=== PATIENT | female | born 1985 | race American Indian/Alaskan Native ===

== ENCOUNTER 2021-07-22 11:31 | Emergency (ER) | payer MEDICAID ==
[2021-07-22 12:59] LABS: Bilirubin,Urine NEG (Negative); Blood,Urine NEG (Negative); Color,Urine Yellow (Yellow); Mucus,Urine 1+ /HPF; Protein,Urine <15 mg/dL mg/dL (Negative)
[2021-07-22 13:34] LABS: Alanine Aminotransferase 29 units/L (7-56); Albumin 3.7 g/dL (3.9-5); Blood Urea Nitrogen 8 mg/dL (7-17); Calcium 8.9 mg/dL (8.4-10.2); Hemolysis Index 0
[2021-07-22 13:44] LABS: BUN/Creatinine Ratio 20
[2021-07-22 13:59] LABS: INR 0.87 (0.87-1.13)
--- NOTE | 2021-07-22 15:17 | Emergency Department Report ---
ED HPI - General Chief complaint: Vaginal Bleeding Stated complaint: 10 WKS Time Seen by Provider: 07/22/21 15:11 Source: patient Mode of arrival: Ambulatory Limitations: No Limitations - History of Present Illness Initial comments: Patient 35-year-old female A0 presents for vaginal spotting x2 days. Patient denies fevers or chills no nausea no vomiting. No active bleeding at this time. Patient does have [employer] Dr. Heath. There are no exacerbating or relieving factors. MD Complaint: abdominal pain - Related Data Previous Rx's Medication Instructions Recorded Last Taken Type amLODIPine [Norvasc] 10 mg PO DAILY #30 tab 10/28/19 Unknown Rx hydroCHLOROthiazide [Hctz] 12.5 mg PO QDAY #30 capsule 10/28/19 Unknown Rx Allergies Allergy/AdvReac Type Severity Reaction Status Date / Time No Known Allergies Allergy Unverified 01/13/19 09:00 ED Review of Systems ROS: Stated complaint: 10 WKS Other details as noted in HPI Constitutional: denies: chills, fever Eyes: denies: eye pain, eye discharge, vision change ENT: denies: ear pain, throat pain Respiratory: denies: cough, shortness of breath, wheezing Cardiovascular: denies: chest pain, palpitations Endocrine: no symptoms reported Gastrointestinal: abdominal pain. denies: nausea, vomiting, diarrhea, constipation, melena Genitourinary: denies: urgency, dysuria, frequency, hematuria, discharge Musculoskeletal: back pain Skin: denies: rash, lesions Neurological: denies: headache, weakness, paresthesias, vertigo Psychiatric: denies: anxiety, depression Hematological/Lymphatic: denies: easy bleeding, easy bruising ED Past Medical Hx - Past Medical History Previous Medical History?: Yes Hx Hypertension: Yes - Surgical History Past Surgical History?: Yes Hx Cholecystectomy: Yes Additional Surgical History: Hernia repair - Social History Smoking Status: Never Smoker Substance Use Type: None - Medications Home Medications: Home Medications Medication Instructions Recorded Confirmed Last Taken Type amLODIPine [Norvasc] 10 mg PO DAILY #30 tab 10/28/19 Unknown Rx hydroCHLOROthiazide [Hctz] 12.5 mg PO QDAY #30 capsule 10/28/19 Unknown Rx ED Physical Exam - General Limitations: No Limitations General appearance: alert, in no apparent distress - Head Head exam: Present: atraumatic, normocephalic - Eye Eye exam: Present: normal appearance, EOMI Pupils: Present: normal accommodation - ENT ENT exam: Present: mucous membranes moist - Neck Neck exam: Present: normal inspection, full ROM. Absent: tenderness - Respiratory Respiratory exam: Present: normal lung sounds bilaterally. Absent: respiratory distress, wheezes - Cardiovascular Cardiovascular Exam: Present: regular rate, normal rhythm, normal heart sounds. Absent: systolic murmur, diastolic murmur, rubs, gallop - GI/Abdominal GI/Abdominal exam: Absent: distended - Rectal Rectal exam: Present: deferred - External exam: Present: other - Extremities Exam Extremities exam: Present: normal inspection, full ROM, normal capillary refill. Absent: tenderness, pedal edema - Back Exam Back exam: Present: normal inspection, full ROM. Absent: CVA tenderness (R), CV A tenderness (L) - Neurological Exam Neurological exam: Present: alert, oriented X3, CN II-XII intact, normal gait - Psychiatric Psychiatric exam: Present: normal affect, normal mood - Skin Skin exam: Present: warm, dry, intact, normal color. Absent: rash ED Course Vital Signs 07/22/21 12:11 Temperature 98.4 F Pulse Rate 81 Respiratory 20 Rate Blood Pressure 140/85 [Right] O2 Sat by Pulse 99 Oximetry ED Medical Decision Making - Lab Data Result diagrams: 07/22/21 16:00 07/22/21 12:50 Labs 07/22/21 07/22/21 07/22/21 12:50 12:50 12:50 PT 12.7 INR 0.87 Sodium 134 L Potassium 3.6 Chloride 102.0 Carbon Dioxide 20 L Anion Gap 16 BUN 8 Creatinine 0.4 L Estimated GFR > 60 BUN/Creatinine Ratio 20 Glucose 81 Calcium 8.9 Total Bilirubin 0.20 AST 19 ALT 29 Alkaline Phosphatase 86 Total Protein 6.7 Albumin 3.7 L Albumin/Globulin Ratio 1.2 HCG, Quant 79957 H Urine Color Urine Turbidity Urine pH Ur Specific [place] Urine Protein Urine Glucose (UA) Urine Ketones Urine Blood Urine Nitrite Urine Bilirubin Urine Urobilinogen Ur Leukocyte Esterase Urine WBC (Auto) Urine RBC (Auto) U Epithel Cells (Auto) Urine Mucus Blood Type Antibody Screen 07/22/21 07/22/21 12:55 Unknown PT INR Sodium Potassium Chloride Carbon Dioxide Anion Gap BUN Creatinine Estimated GFR BUN/Creatinine Ratio Glucose Calcium Total Bilirubin AST ALT Alkaline Phosphatase Total Protein Albumin Albumin/Globulin Ratio HCG, Quant Urine Color Yellow Urine Turbidity Clear Urine pH 7.0 Ur Specific [place] 1.017 Urine Protein <15 mg/dl Urine Glucose (UA) Neg Urine Ketones Neg Urine Blood Neg Urine Nitrite Neg Urine Bilirubin Neg Urine Urobilinogen 2.0 Ur Leukocyte Esterase Neg Urine WBC (Auto) 1.0 Urine RBC (Auto) 1.0 U Epithel Cells (Auto) 8.0 Urine Mucus 1+ Blood Type O POSITIVE Antibody Screen Negative Labs 07/22/21 07/22/21 07/22/21 12:50 12:50 12:50 WBC RBC Hgb Hct MCV MCH MCHC RDW Plt Count Lymph % (Auto) [place] % (Auto) Eos % (Auto) Baso % (Auto) Lymph # (Auto) [place] # (Auto) Eos # (Auto) Baso # (Auto) Seg Neutrophils % Seg Neutrophils # PT 12.7 INR 0.87 Sodium 134 L Potassium 3.6 Chloride 102.0 Carbon Dioxide 20 L Anion Gap 16 BUN 8 Creatinine 0.4 L Estimated GFR > 60 BUN/Creatinine Ratio 20 Glucose 81 Calcium 8.9 Total Bilirubin 0.20 AST 19 ALT 29 Alkaline Phosphatase 86 Total Protein 6.7 Albumin 3.7 L Albumin/Globulin Ratio 1.2 HCG, Quant 52454 H Urine Color Urine Turbidity Urine pH Ur Specific [place] Urine Protein Urine Glucose (UA) Urine Ketones Urine Blood Urine Nitrite Urine Bilirubin Urine Urobilinogen Ur Leukocyte Esterase Urine WBC (Auto) Urine RBC (Auto) U Epithel Cells (Auto) Urine Mucus Blood Type Antibody Screen 07/22/21 07/22/21 07/22/21 12:55 16:00 Unknown WBC 9.1 RBC 4.51 Hgb 10.3 Hct 32.6 MCV 72 L MCH 23 L MCHC 32 RDW 20.5 H Plt Count 286 Lymph % (Auto) 14.2 [place] % (Auto) 4.7 Eos % (Auto) 1.2 Baso % (Auto) 0.3 Lymph # (Auto) 1.3 [place] # (Auto) 0.4 Eos # (Auto) 0.1 Baso # (Auto) 0.0 Seg Neutrophils % 79.6 H Seg Neutrophils # 7.2 PT INR Sodium Potassium Chloride Carbon Dioxide Anion Gap BUN Creatinine Estimated GFR BUN/Creatinine Ratio Glucose Calcium Total Bilirubin AST ALT Alkaline Phosphatase Total Protein Albumin Albumin/Globulin Ratio HCG, Quant Urine Color Yellow Urine Turbidity Clear Urine pH 7.0 Ur Specific [place] 1.017 Urine Protein <15 mg/dl Urine Glucose (UA) Neg Urine Ketones Neg Urine Blood Neg Urine Nitrite Neg Urine Bilirubin Neg Urine Urobilinogen 2.0 Ur Leukocyte Esterase Neg Urine WBC (Auto) 1.0 Urine RBC (Auto) 1.0 U Epithel Cells (Auto) 8.0 Urine Mucus 1+ Blood Type O POSITIVE Antibody Screen Negative - Radiology Data Radiology results: report reviewed, image reviewed US OB transvaginal, US OB <= 14 weeks fetus INDICATION / CLINICAL INFORMATION: abd pain vag bleeding pos preg. TECHNIQUE: Transabdominal and Transvaginal. COMPARISON: None available. FINDINGS: UTERUS: Appears within normal limits. GESTATIONAL SAC: Well-defined oval shape and intrauterine in location. YOLK SAC: No significant abnormality. EMBRYO/FETUS: - [place] Length = 3.5 cm - Heart Rate, beats per minute (if present) = 158 beats per minute ADNEXA: No significant abnormality. FREE FLUID: Minimal free fluid in the rectouterine pouch. ADDITIONAL FINDINGS: None. IMPRESSION: 1. Single, living intrauterine with estimated sonographic age of 10 weeks 3 days. Signer Name: Vladimir Emanuel MD Signed: 07/22/2021 4:14 PM Workstation Name: [id number] Transcribed By: KOJO Dictated By: Vladimir Emanuel MD Electronically Authenticated By: Vladimir Emanuel MD Signed Date/Time: 07/22/211613 DD/ 11 TD/TT: Print Cancel US OB transvaginal, US OB <= 14 weeks fetus INDICATION / CLINICAL INFORMATION: abd pain vag bleeding pos preg. TECHNIQUE: Transabdominal and Transvaginal. COMPARISON: None available. FINDINGS: UTERUS: Appears within normal limits. GESTATIONAL SAC: Well-defined oval shape and intrauterine in location. YOLK SAC: No significant abnormality. EMBRYO/FETUS: - [place] Length = 3.5 cm - Heart Rate, beats per minute (if present) = 158 beats per minute ADNEXA: No significant abnormality. FREE FLUID: Minimal free fluid in the rectouterine pouch. ADDITIONAL FINDINGS: None. IMPRESSION: 1. Single, living intrauterine with estimated sonographic age of 10 weeks 3 days. Signer Name: Vladimir Emanuel MD Signed: 07/22/2021 4:14 PM Workstation Name: [id number] Transcribed By: CS Dictated By: Vladimir Emanuel MD Electronically Authenticated By: Vladimir Emanuel MD Signed Date/Time: 07/22/211613 DD/ 11 TD/TT: - Medical Decision Making Patient 35-year-old female A0 presents for vaginal spotting x2 days. Patient denies fevers or chills no nausea no vomiting. No active bleeding at this time. Patient does have [employer] Dr. Heath.There are no exacerbating or reli eving factors. Ultrasound OB intact IUP 10 weeks 3 days heart rate 153 bpm. hCG 98737, this is an intact , no other abnormality noted on US , ua normal, cbc: normal, plan DC to home, follow-up with [employer] in 2 to 3 days. Return to emergency department should symptoms worsen. Patient verbalized agreement and understanding with discharge plan. Patient DC'd home in stable condition at this time. Patient is currently tolerating p.o. intake without nausea or vomiting. Critical care attestation.: If time is entered above; I have spent that time in minutes in the direct care of this critically ill patient, excluding procedure time. ED Disposition Clinical Impression: Vaginal bleeding during Abdominal pain during Qualifiers: Trimester: first trimester Qualified Code(s): O26.891 - Other specified related conditions, first trimester; R10.9 - Unspecified abdominal pain Disposition: 01 HOME / SELF CARE / HOMELESS Is pt being admited?: No Does the pt Need Aspirin: No Condition: Stable Instructions: Abdominal Pain During , Vaginal Bleeding During , First Trimester Additional Instructions: Follow-up with your [employer] in 2 to 3 days. Return to emergency department should symptoms worsen. Referrals: SYLVIE HEATH MD [Staff Physician] - 2-3 Days Forms: Work/School Release Form(ED) Time of Disposition: 16:54
--- NOTE | 2021-07-22 16:19 | Ultrasound Report ---
US OB transvaginal, US OB <= 14 weeks fetus INDICATION / CLINICAL INFORMATION: abd pain vag bleeding pos preg. TECHNIQUE: Transabdominal and Transvaginal. COMPARISON: None available. FINDINGS: UTERUS: Appears within normal limits. GESTATIONAL SAC: Well-defined oval shape and intrauterine in location. YOLK SAC: No significant abnormality. EMBRYO/FETUS: - [place] Length = 3.5 cm - Heart Rate, beats per minute (if present) = 158 beats per minute ADNEXA: No significant abnormality. FREE FLUID: Minimal free fluid in the rectouterine pouch. ADDITIONAL FINDINGS: None. IMPRESSION: 1. Single, living intrauterine with estimated sonographic age of 10 weeks 3 days. Signer Name: Vladimir Emanuel MD Signed: 07/22/2021 4:14 PM Workstation Name: [id number]
--- NOTE | 2021-07-22 16:19 | Ultrasound Report ---
US OB transvaginal, US OB <= 14 weeks fetus INDICATION / CLINICAL INFORMATION: abd pain vag bleeding pos preg. TECHNIQUE: Transabdominal and Transvaginal. COMPARISON: None available. FINDINGS: UTERUS: Appears within normal limits. GESTATIONAL SAC: Well-defined oval shape and intrauterine in location. YOLK SAC: No significant abnormality. EMBRYO/FETUS: - [place] Length = 3.5 cm - Heart Rate, beats per minute (if present) = 158 beats per minute ADNEXA: No significant abnormality. FREE FLUID: Minimal free fluid in the rectouterine pouch. ADDITIONAL FINDINGS: None. IMPRESSION: 1. Single, living intrauterine with estimated sonographic age of 10 weeks 3 days. Signer Name: Vladimir Emanuel MD Signed: 07/22/2021 4:14 PM Workstation Name: [id number]
[2021-07-22 16:36] LABS: Basophils % (Auto) 0.3 % (0.0-1.8); Eosinophils # (Auto) 0.1 K/mm3 (0.0-0.4); Eosinophils % (Auto) 1.2 % (0.0-4.3); Hematocrit 32.6 % (30.3-42.9); Hemoglobin 10.3 gm/dl (10.1-14.3); Lymphocytes # (Auto) 1.3 K/mm3 (1.2-5.4); Lymphocytes % (Auto) 14.2 % (13.4-35.0); Mean Corpuscular HGB Conc 32 % (30-34); Mean Corpuscular Volume 72 fl (79-97); Monocytes # (Auto) 0.4 K/mm3 (0.0-0.8); Monocytes % (Auto) 4.7 % (0.0-7.3); Platelet Count 286 K/mm3 (140-440); Red Blood Count 4.51 M/mm3 (3.65-5.03)
[2021-07-22 16:38] LABS: Red Cell Distribution Width 20.5 % (13.2-15.2)
[2021-07-22 17:16] VITALS: BP 122/74
== END 2021-07-22 17:12 | disposition home or self-care (01) ==
LOC: ED 11:31
DX: O20.8 Other hemorrhage in early pregnancy (principal); R10.9 Unspecified abdominal pain; Z3A.10 10 weeks gestation of pregnancy
CPT/HCPCS: 36415; 76801; 76817; 80053; 81001; 84702; 85025; 85610; 86850; 86900; 86901; 99284